=== PATIENT | male | born 1960 | race Two or more races ===

== ENCOUNTER → 2024-05-25 | Outpatient (BNVA) | payer MEDICAID, SELFPAY | END | disposition home or self-care (01) | PROVIDERS: PCP Nurse Practitioner Family; Referring Provider Nurse Practitioner Family; Visit Provider Nurse Practitioner Family | DX: I10 Essential (primary) hypertension (principal); E78.5 Hyperlipidemia, unspecified; E11.9 Type 2 diabetes mellitus without complications; E66.9 Obesity, unspecified; M15.9 Polyosteoarthritis, unspecified; Z68.42 Body mass index [BMI] 45.0-49.9, adult | CPT/HCPCS: 99213 ==

== ENCOUNTER → 2024-06-09 | Outpatient (BNVA) | payer MEDICAID, SELFPAY | END | disposition home or self-care (01) | PROVIDERS: PCP Nurse Practitioner Family; Referring Provider Nurse Practitioner Family; Visit Provider Nurse Practitioner Family | DX: E78.5 Hyperlipidemia, unspecified (principal); I10 Essential (primary) hypertension; E11.9 Type 2 diabetes mellitus without complications | CPT/HCPCS: 99214; A9270 ==

== ENCOUNTER → 2024-06-17 | Outpatient (BNVA) | payer MEDICAID, SELFPAY | END | disposition home or self-care (01) | PROVIDERS: PCP Nurse Practitioner Family; Referring Provider Nurse Practitioner Family; Visit Provider Nurse Practitioner Family | DX: E78.5 Hyperlipidemia, unspecified (principal); E11.9 Type 2 diabetes mellitus without complications; E66.9 Obesity, unspecified; R94.5 Abnormal results of liver function studies; I10 Essential (primary) hypertension; Z71.2 Person consulting for explanation of examination or test findings | CPT/HCPCS: 99213 ==

== ENCOUNTER 2024-06-25 11:49 | Inpatient (IN) | payer MEDICAID, SELFPAY ==
[2024-06-25] VITALS (34 sets, daily range): BP systolic 136–251; BP diastolic 79–136; PULSE 57–88; RESP 12–90; TEMP 36.6–37.2; O2SAT 90–98; BMI 43.3
--- NOTE | 2024-06-25 11:53 | EKG_ITS ---
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
--- NOTE | 2024-06-25 12:04 | XR_ITS ---
Examination: PA chest single view TECHNIQUE: Upright PA chest single view Exam date and time: June 25, 2024 1207 hours Comparison January 08, 2024 INDICATIONS: Chronic hypertension. FINDINGS: Normal heart size Mild ectasia thoracic aorta. No pneumonia or pulmonary edema IMPRESSION: No active disease
--- NOTE | 2024-06-25 12:05 | PD.EDRME ---
Rapid Medical Screening Exam RME Arrival date/time: 06/25/24 11:49 64-year-old male who presents to the emergency department with complaints of acute chest pain elevated blood pressure. I have greeted and performed a focused initial assessment of this patient. Initial appropriate labs ordered at this time. A comprehensive ED assessment and evaluation of the patient and analysis of all test and completion of medical decision making process will be conducted by additional ED provider. Chief Complaint: Chest Pain Time Seen by Provider: 06/25/24 12:04
--- NOTE | 2024-06-25 12:10 | PC.NURSE ---
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
--- NOTE | 2024-06-25 12:17 | EDNOTE_ITS ---
<Statement entered by Irene Choudhary MD - 06/25/24 15:24> As co-signing physician, I was present and available for consult prn. I concur with the plan and care as documented by the midlevel provider. ED Chest Pain RME/HPI General Chief Complaint: Chest Pain Stated Complaint: CHEST PAIN x 4 DAYS, WORSE SINCE 04 TODAY Time Seen by Provider: 06/25/24 12:04 Arrival date/time: 06/25/24 11:49 RME / HPI RME / HPI narrative: 64-year-old male patient with significant history of hypertension diabetes mellitus, hypercholesterolemia, came in for evaluation regarding right-sided chest pain. Onset of symptoms for the last 3 days, getting worse this morning, severity 10 out of 10, radiating to the back. Pain patient described was sharp pain. Patient was noted to have blood pressure above 200s systolic. Patient denies any cough denies any fever denies any shortness of breath. No medication was taken prior to arrival. Related Data Home Medications ?Medication ?Instructions ?Recorded ?Confirmed sitagliptin phosphate 25 mg tablet 25 mg PO QDAY 06/25/24 06/25/24 (Januvia) Previous Rx's ?Medication ?Instructions ?Recorded aspirin 81 mg chewable tablet 81 mg PO QDAY #90 tabs 05/25/24 losartan 100 mg tablet 100 mg PO QDAY #90 tabs 05/25/24 rosuvastatin 20 mg tablet 20 mg PO HS 90 days #90 tabs 05/25/24 amlodipine 10 mg tablet 10 mg PO QDAY #90 tabs 06/09/24 Allergies Allergy/AdvReac Type Severity Reaction Status Date / Time No Known Allergies Allergy Verified 06/25/24 11:52 Review of Systems Review of Systems Narrative Review of Systems: Review of system reviewed and within normal limits except mentioned in HPI ED Exam Narrative Physical exam: VITAL SIGNS: Reviewed. GENERAL APPEARANCE: Alert and interactive, follows commands, no acute distress, HEAD AND FACE: Non-traumatic. ENT: PERRL, pink conjunctivitis, eyelid no trauma, Mucous membrane moist. NECK: Supple, nontender, no nuchal rigidity. CHEST: Right sided chest no tenderness crepitus, no paradoxical movement, no retractions. LUNGS: Clear, well ventilated, symmetric, no rales, no wheezing, no ronchi, no stridor, good breath sounds bilaterally. HEART: Regular rate, regular rhythm, no murmur, no gallops. ABDOMEN: Soft, positive bowel sounds, nondistended, no guarding, nontender, no rebound, no masses, RECTAL: Deferred. GENITAL: Deferred. NEUROLOGICAL: Gross motor function intact sensory function intact, Appropriate for age. MUSCULOSKELETAL: low back nontender, full range of motion. EXTREMITIES: Nontender, full range of motion. SKIN: Color pink, dry, no rash, no lacerations, no abrasions, no contusions. LYMPHATICS: Deferred. Course Quality Measures none Orders Category Date Time Status COVID-19 Screening Questionnaire NOW Care 06/25/24 14:[address] Screening NOW Care 06/25/24 12:[address] Screening X1 Care 06/25/24 12:33 Active Physical Director STAT Care 06/25/24 12:04 Active Continuous Pulse Oximetry ONCE Care 06/25/24 12:04 Active Decision to Admit X1 Care 06/25/24 14:32 Ordered EKG (ED ONLY) *Do not use* NOW Care 06/25/24 11:53 Completed Insert IV STAT Care 06/25/24 12:04 Active Notify provider NOW Care 06/25/24 14:19 Active Consult to Cardiology Stat Cons 06/25/24 14:[address] angio chest abdomen pelvis Stat Exams 06/25/24 13:09 Completed EKG (ED Only) Stat Exams 06/25/24 11:53 Draft XR chest 1V portable Stat Exams 06/25/24 12:04 Completed B-Type Natriuretic Peptide Stat Lab 06/25/24 12:17 Completed CBC Stat Lab 06/25/24 12:17 Completed Comprehensive Metabolic Panel Stat Lab 06/25/24 12:17 Completed Lipase Stat Lab 06/25/24 12:17 Completed Magnesium Stat Lab 06/25/24 12:17 Completed Partial Thromboplastin Time AM DRAW Lab 06/27/24 05:00 Ordered Partial Thromboplastin Time Stat Lab 06/25/24 12:17 Completed Prothrombin Time with INR AM DRAW Lab 06/27/24 05:00 Ordered Prothrombin Time with INR Stat Lab 06/25/24 12:17 Completed Troponin I Stat Lab 06/25/24 12:17 Completed Troponin I Stat Lab 06/25/24 14:22 Received Aspirin Med 06/25/24 14:16 Discontinued 325 mg PO X1 ONE Heparin Inj Med 06/25/24 14:19 Discontinued 4,000 unit IV X1 ONE Heparin/D5w 25K 250 ML Ivpb [Heparin in D5w Ivpb] Med 06/25/24 14:30 Active 25,000 unit in 250 ml IV 7.1 units/kg/hr Labetalol IV [Trandate IV] Med 06/25/24 12:16 Discontinued 20 mg IVP X1 ONE Morphine Inj Med 06/25/24 12:16 Discontinued 4 mg IVP X1 ONE Nitroglycerin Oint 2% [Nitro-paste Oint 2%] Med 06/25/24 13:07 Discontinued 1 inch TOP X1 ONE Nitroglycerin [Nitrostat 1/150] Med 06/25/24 13:07 Discontinued 0.4 mg SL X1 ONE Ondansetron Inj [Zofran Inj] Med 06/25/24 12:16 Discontinued 4 mg IV X1 ONE hydrALAZINE INJ [Apresoline Inj] Med 06/25/24 13:25 Discontinued 20 mg IV X1 ONE Oxygen Delivery NOW RT 06/25/24 12:04 Active Vital Signs Vital signs: Vital Signs Temperature 97.9 F 06/25/24 12:05 Pulse Rate 88 06/25/24 12:05 Respiratory Rate 18 06/25/24 12:05 Blood Pressure 229/133 H 06/25/24 12:05 Pulse Oximetry (%) 96 06/25/24 12:05 Oxygen Delivery Method Room Air 06/25/24 12:05 Chest Pain MDM Narrative MDM Narrative:: 64-year-old male patient with significant history of hypertension diabetes mellitus, hypercholesterolemia, came in for evaluation regarding right-sided chest pain. Onset of symptoms for the last 3 days, getting worse this morning, severity 10 out of 10, radiating to the back. Pain patient described was sharp pain. Patient was noted to have blood pressure above 200s systolic. Patient denies any cough denies any fever denies any shortness of breath. No medication was taken prior to arrival. EKG as interpreted by me showed mild ST segment elevation on V leads, and mild ST depression in lead II and lead III. Ventricular rate of 86 bpm. Initial troponin was noted to be 1.48. CT angiogram of the chest and abdomen and pelvis was done to rule out aortic dissection or pulmonary embolism, it came back unremarkable. Patient was given morphine, aspirin, nitro, Nitropaste, and was started on heparin bolus and drip. I spoke with Dr. Lopez, dope firer on-call, who reviewed the case in case, and agrees for heparin drip and aspirin. Thank you Dr. Lopez Patient still having chest pain substernal location this time, however it is less than earlier today. Spoke with hospitalist, and admitted the patient. Patient data External records reviewed:: None Clinical information provided by:: patient Social determinants that could affect healthcare access:: none Patient has the following chronic illnesses:: Diabetes mellitus hypertension, hypercholesterolemia How is presenting disease/condition affected by chronic disease/condition?: exacerbated by Evaluation data The following diagnostics were reviewed and interpreted by me:: lab results, radiology exam(s) and EKG tracing(s) Lab and/or radiology exams considered but not ordered:: None Interpretation Summary: EKG as interpreted by me showed mild ST segment elevation on V leads, and mild ST depression in lead II and lead III, ventricular to 86 bpm. Initial troponin was noted to be 1.48. CT angiogram of the chest and abdomen and pelvis was done to rule out aortic dissection or pulmonary embolism, it came back unremarkable. Medications / Prescriptions Medications or Prescriptions considered but not ordered:: None Medication administrations:: Medication Administration History Heparin Sodium/Dextrose (Heparin In D5w Ivpb) 25,000 unit in 250 mls @ 10.016 mls/hr IV .Q24H KALEY; Protocol Stop: 07/09/24 14:29 Discontinued Medications Aspirin (Aspirin 325 Mg Tablet) 325 mg PO X1 ONE Stop: 06/25/24 14:17 Last Admin: 06/25/24 14:21 Dose: 325 mg Documented By: GLADIS Heparin Sodium (Porcine) (Heparin Sod Inj 5000 Unit/Ml Vial) 4,000 unit IV X1 ONE; Protocol Stop: 06/25/24 14:20 Hydralazine HCl (Hydralazine Inj 20 Mg/Ml Vial) 20 mg IV X1 ONE Stop: 06/25/24 13:26 Last Admin: 06/25/24 13:39 Dose: 20 mg Documented By: MANI Labetalol HCl (Labetalol Inj 5 Mg/Ml Vial 20 Ml) 20 mg IVP X1 ONE Stop: 06/25/24 12:17 Last Admin: 06/25/24 12:24 Dose: 20 mg Documented By: GLADIS Morphine Sulfate (Morphine Sulf Inj 10 Mg/Ml Vial) 4 mg IVP X1 ONE Stop: 06/25/24 12:17 Last Admin: 06/25/24 12:24 Dose: 4 mg Documented By: GLADIS Nitroglycerin (Nitroglycerin Oint 2% 1 Inch Packet) 1 inch TOP X1 ONE Stop: 06/25/24 13:08 Last Admin: 06/25/24 13:09 Dose: 1 inch Documented By: GLADIS Nitroglycerin (Nitroglycerin 0.4 Mg Subl Btl #25) 0.4 mg SL X1 ONE Stop: 06/25/24 13:08 Last Admin: 06/25/24 13:11 Dose: 0.4 mg Documented By: GLADIS Ondansetron HCl (Ondansetron Inj 2 Mg/Ml Inj 2 Ml) 4 mg IV X1 ONE; Protocol Stop: 06/25/24 12:17 Last Admin: 06/25/24 12:23 Dose: 4 mg Documented By: GLADIS Labetalol IV, hydralazine IV morphine, nitro Nitropaste, Zofran, aspirin and heparin drip and bolus Consultations Consultation(s) initiated? (list below): Yes Consultation #1 (Physician, Specialty, Details): Dr. Trent, discussed the case, thank you Dr. Diagnosis Chest Pain Differential Diagnosis: pneumothorax, chest pain and other (Aortic dissection, pulmonary embolism,) Most likely diagnosis given after review of the tests above:: Chest pain, non-STEMI Admission Indicated Admission indicated?: indicated Explain why admission is indicated or not indicated:: For further management. Admission Request Was there a request for admission?: Yes Admission Attestation Admission request attestation: Discussed case with [Dr. Negron] from Hospitalist service regarding admission. Discussed patients ED course, exam findings, labs, and radiology results. The Hospitalist [agrees] to accept the patient for admission. Disposition Plan Disposition Plan: Admit Discharge Plan Plan Patient Disposition: Admit Acute Care w/in Hospital Prescriptions/Referrals Prescriptions/Med Rec: No Action losartan 100 mg tablet 100 mg PO QDAY Qty: 90 0RF Rx Instructions: Directions in [place]utanese rosuvastatin 20 mg tablet 20 mg PO HS 90 Days Qty: 90 0RF Rx Instructions: Directions in [place]utanese aspirin 81 mg tablet,chewable 81 mg PO QDAY Qty: 90 0RF Rx Instructions: Directions in [place] amlodipine 10 mg tablet 10 mg PO QDAY Qty: 90 0RF Rx Instructions: Directions in [place] Januvia 25 mg tablet 25 mg PO QDAY Patient Comments: TAKE 1 TABLET BY MOUTH EVERY DAY Referrals: Sheila [facility] [employer],Renay Sow, [employer] [Primary Care Provider] - In 1 week Problem List Clinical Impression: Chest pain, Non-STEMI (non-ST elevated myocardial infarction) Patient/Caregiver Discharge Instructions Print Language: Bhutanese Stand Alone Forms: Ly Award Info., Patient Portal Info Letter
[2024-06-25] MEDS: ONDANSETRON INJ 2 MG/ML INJ 2 ML 4 MG IV (12:23)
[2024-06-25] MEDS: MORPHINE SULF INJ 10 MG/ML VIAL 4 MG IVP (12:24)
[2024-06-25] MEDS: LABETALOL INJ 5 MG/ML VIAL 20 ML 20 MG IVP ×2 (12:24→16:19)
[2024-06-25 12:27] LABS: Basophils # (Auto) 0.1 Thou/mm3 (0.0-0.2); Basophils % (Auto) 0 % (0-2.5); Eosinophils # (Auto) 0.1 Thou/mm3 (0.0-0.5); Eosinophils % (Auto) 0 % (0-10); Hematocrit 45.3 % (41.0-53.0); Hemoglobin 15.9 g/dL (13.5-16.0); Immature Granulocytes % (Auto) 1 % (0-0); Immature Granulocytes Auto 0.09 Thou/mm3 (0.00-0.00); Lymphocytes # (Auto) 1.3 Thou/mm3 (1.0-4.8); Lymphocytes % (Auto) 9 % (10-50); Mean Corpuscular HGB Conc 35.1 g/dl (31.0-37.0); Mean Corpuscular Hemoglobin 29.9 pg (25.0-35.0); Mean Corpuscular Volume 85 fL (80-100); Monocytes # (Auto) 0.6 Thou/mm3 (0.0-0.8); Monocytes % (Auto) 4 % (0-12); Neutrophils # (Auto) 13.3 Thou/mm3 (1.8-7.7); Neutrophils % (Auto) 86 % (37-80); Nucleated Red Blood Cell % 0 /100 WBC (0); Platelet Count 222 Thou/mm3 (140-440); RDW Standard Deviation 42.5 fL (35.1-43.9); Red Blood Count 5.31 Miln/mm3 (4.50-5.90); White Blood Count 15.4 Thou/mm3 (3.8-10.6)
[2024-06-25 12:43] LABS: Partial Thromboplastin Time 26.2 Seconds (22.0-36.0)
[2024-06-25 12:44] LABS: Alanine Aminotransferase 64 U/L (10-49); Alkaline Phosphatase 100 U/L (46-116); Anion Gap 9 (7-16); Aspartate Amino Transferase 44 U/L (0-34); BUN/Creatinine Ratio 11 Ratio (12-20); Bilirubin,Total 1.1 mg/dL (0.3-1.2); Blood Urea Nitrogen 13 mg/dL (9-23); Calcium 10.1 mg/dL (8.3-10.6); Calcium (Corrected) 10.1 mg/dL (8.5-10.1); Chloride 96 mMol/L (98-107); Creatinine (Component) 1.2 mg/dL (0.6-1.3); Estimated Creatinine Clearance 91.7 mL/min (>60); Glucose 293 mg/dL (74-106); Lipase 36 U/L (12-53); Magnesium 1.9 mg/dL (1.6-2.6); Osmolality,Calculated 281 (275-295); Potassium 3.2 mMol/L (3.4-5.1); Sodium 135 mMol/L (136-145); eGFR > 60 See Note
[2024-06-25 12:45] LABS: Albumin/Globulin Ratio 1.7 (1.2-2.2)
[2024-06-25 12:56] LABS: Troponin I 1.484 ng/mL (0.0-0.045)
[2024-06-25 13:08] LABS: B-Type Natriuretic Peptide 65 pg/mL (0-100)
[2024-06-25] MEDS: NITROGLYCERIN OINT 2% 1 INCH PACKET TOP (13:09)
--- NOTE | 2024-06-25 13:09 | XR_ITS ---
Examination: CTA chest, with intravenous contrast. CTA abdomen, with intravenous contrast. CTA pelvis, with intravenous contrast. 2-D sagittal and coronal reconstructions. 3-D reconstructions. Date and time of exam: June 25, 2024 1313 hours INDICATIONS: Worsening chest pain beginning 3 days ago CTDI vol (mgy) 17.9 DLP (MGycm) 1677 Technique: Multiple CTA images, 2.0 mm slice thickness, obtained chest, abdomen, pelvis, with the high-resolution 64 slice scanner. 100 cc Isovue-370 is administered intravenously. Sagittal and coronal 2-D reconstructions are obtained. 3-D reconstructions, angiographic images are obtained. 3-D postprocessing, including vascular maximum intensity projections. Low dose protocols were performed. One or more of the following dose reduction techniques were used; automated exposure control, adjustment of the mA and/or KV according to patient size, use of iterative reconstruction technique. Findings: AP dimension ascending thoracic aorta 34 mm No thoracic aortic dissection Main pulmonary artery segment 40 mm no pulmonary artery emboli No paratracheal tracheobronchial or bronchopulmonary adenopathy No pneumonia or pulmonary edema or pleural disease Diffuse fatty liver No focal liver or splenic lesions No gallstones No pancreatic or adrenal mass Abdominal aorta is not enlarged Moderate bilateral renal parenchymal scar formation, no hydronephrosis No bowel obstruction No pericecal inflammatory change No diverticulitis No significant prostatomegaly Urinary bladder intact Advanced degenerative disc disease L5-S1 IMPRESSION: Negative for thoracic aortic aneurysmal dilatation or dissection Pulmonary artery hypertension, negative for pulmonary artery emboli No pneumonia, pulmonary edema or pleural disease Negative for abdominal aortic aneurysm Moderate bilateral renal parenchymal scar formation, no hydronephrosis Moderate right hydrocele
[2024-06-25] MEDS: NITROGLYCERIN 0.4 MG SUBL BTL #25 SL (13:11)
--- NOTE | 2024-06-25 13:12 | PC.NURSE ---
Patient gone to ct via [facility]
[2024-06-25] MEDS: hydrALAZINE INJ 20 MG/ML VIAL IV (13:39)
[2024-06-25] MEDS: Aspirin 325 MG TABLET PO (14:21)
[2024-06-25] MEDS: Heparin/D5w 25K 250 ML Ivpb 25,000 UNIT/250 ML BAG 10.016 UNIT IV (14:49)
[2024-06-25] MEDS: HEPARIN SOD INJ 5000 UNIT/ML VIAL 4000 UNIT IV (14:49)
[2024-06-25 15:00] LABS: Troponin I 3.195 ng/mL (0.0-0.045)
--- NOTE | 2024-06-25 15:22 | PC.NURSE ---
Patient lying in high abrams's position sleeping, snoring intermittently, patient arouses and responds normally to voice, patient states pain is much better and rates it at 5/10 at this time, skin warm, dry and pink, patient awaiting admission. Patient aware of plan of care, call light within reach.
--- NOTE | 2024-06-25 15:25 | ESCONSULT_ITS ---
<Statement entered by Etienne Lopez MD - 06/26/24 13:28> I personally examined this patient emergency room appears to be having severe chest pain due to acute myocardial infarction with no ST segment elevation possibly occluded of sidebranch are possible 90% stenosis of one of the vessels continue aspirin heparin and Plavix hypertension management evaluate the patient in detail with PGY 2 Dr. Alonso SOUTH will monitor the patient arrange for coronary angiogram tomorrow morning HPI Data of Consult Primary Care Provider: Renay Sosa NP Consult Narrative History of present illness: 64-year-old male with past medical history of diabetes, hypertension, hyperlipidemia, peripheral neuropathy, and gout who presented to the ED with complaints of chest pain. Chest pain started around 4 in the morning after waking up to go to urinate. Patient denies any previous cardiac history, and family history is noncontributory. Cardiology consulted due to elevation in troponin and EKG showing signs of ST changes indicating possible NSTEMI. cc:: cc: Exam Vital Signs Temp Pulse Resp BP Pulse Ox O2 Del Method O2 Flow Rate 98.9 F 71 16 180/91 H 98 Room Air 3 06/25/24 14:09 06/25/24 15:21 06/25/24 15:21 06/25/24 15:21 06/25/24 15:21 06/25/24 15:21 06/25/24 13:02 Narrative Exam GENERAL: Alert and oriented x3, no acute distress, appears uncomfortable. HEART: Distant heart sounds, regular rate and rhythm, no murmurs, rubs or gallops. LUNGS: Clear to auscultation bilaterally with symmetrical chest rise. No labored breathing or intercostal retraction. ABDOMEN: Obese, nontender, nondistended, active bowel sounds. EXTREMITIES: Non-tender. No edema. SKIN: Warm and dry, no jaundice or rashes noted. PSYCHIATRIC: Patient is in normal mood and affect, cooperative. Results Labs 06/25/24 12:17 06/25/24 12:17 Labs: Short CBC 06/25/24 Range/Units 12:17 WBC 15.4 H (3.8-10.6) Thou/mm3 Hgb 15.9 (13.5-16.0) g/dL Hct 45.3 (41.0-53.0) % Plt Count 222 (140-440) Thou/mm3 BMP 06/25/24 12:17 Sodium 135 L Potassium 3.2 L Chloride 96 L Carbon Dioxide 30.0 BUN 13 Creatinine 1.2 Glucose 293 H Calcium 10.1 Cardiac Enzymes 06/25/24 06/25/24 Range/Units 12:17 14:22 Troponin I 1.484 H* 3.195 H* D (0.0-0.045) ng/mL Liver Function 06/25/24 Range/Units 12:17 Total Bilirubin 1.1 (0.3-1.2) mg/dL AST 44 H (0-34) U/L ALT 64 H (10-49) U/L Alkaline Phosphatase 100 (46-116) U/L Albumin 5.0 H (3.4-4.8) gm/dL Quality Measures Quality Measures none Medications Home Medications and Allergies Home Medications ?Medication ?Instructions ?Recorded ?Confirmed ?Type sitagliptin phosphate 25 mg tablet 25 mg PO QDAY 06/25/24 06/25/24 History (Paul) Allergies Allergy/AdvReac Type Severity Reaction Status Date / Time No Known Allergies Allergy Verified 06/25/24 11:52 Visit Medications Heparin Sodium/Dextrose (Heparin In D5w Ivpb) 25,000 unit in 250 mls @ 10.016 mls/hr IV .Q24H KALEY; Protocol Stop: 07/09/24 14:29 Last Admin: 06/25/24 14:49 Dose: 7.1 units/kg/hr, 10.016 mls/hr Discontinued Medications Aspirin (Aspirin 325 Mg Tablet) 325 mg PO X1 ONE Stop: 06/25/24 14:17 Last Admin: 06/25/24 14:21 Dose: 325 mg Heparin Sodium (Porcine) (Heparin Sod Inj 5000 Unit/Ml Vial) 4,000 unit IV X1 ONE; Protocol Stop: 06/25/24 14:20 Last Admin: 06/25/24 14:49 Dose: 4,000 unit Hydralazine HCl (Hydralazine Inj 20 Mg/Ml Vial) 20 mg IV X1 ONE Stop: 06/25/24 13:26 Last Admin: 06/25/24 13:39 Dose: 20 mg Labetalol HCl (Labetalol Inj 5 Mg/Ml Vial 20 Ml) 20 mg IVP X1 ONE Stop: 06/25/24 12:17 Last Admin: 06/25/24 12:24 Dose: 20 mg Morphine Sulfate (Morphine Sulf Inj 10 Mg/Ml Vial) 4 mg IVP X1 ONE Stop: 06/25/24 12:17 Last Admin: 06/25/24 12:24 Dose: 4 mg Nitroglycerin (Nitroglycerin Oint 2% 1 Inch Packet) 1 inch TOP X1 ONE Stop: 06/25/24 13:08 Last Admin: 06/25/24 13:09 Dose: 1 inch Nitroglycerin (Nitroglycerin 0.4 Mg Subl Btl #25) 0.4 mg SL X1 ONE Stop: 06/25/24 13:08 Last Admin: 06/25/24 13:11 Dose: 0.4 mg Ondansetron HCl (Ondansetron Inj 2 Mg/Ml Inj 2 Ml) 4 mg IV X1 ONE; Protocol Stop: 06/25/24 12:17 Last Admin: 06/25/24 12:23 Dose: 4 mg Assessment & Plan Plan 64-year-old male with past medical history of diabetes, hypertension, hyperlipidemia, peripheral neuropathy, and gout who presented to the ED with complaints of chest pain. Chest pain started around 4 in the morning after waking up to go to urinate. Patient denies any previous cardiac history, and family history is noncontributory. Cardiology consulted due to elevation in troponin and EKG showing signs of ST changes indicating possible NSTEMI. #NSTEMI #Elevated troponin #Hypertensive urgency Patient coming with chest pain, EKG showing ST changes in multiple leads Patient shows some improvement of chest pain with Nitropaste Patient started on heparin drip Plavix loading dose of 300 mg followed by 75 daily Will work on controlling BP. Order cardiac echo Continue with O2 supplementation Morphine as needed for pain Elevated troponin on admission N.p.o. after midnight for cath tomorrow #Hyperlipidemia #Diabetes #Gout #Peripheral neuropathy Continue management per primary team Case discussed with attending medicaid specialist Dr. John Gupta MD PGY3
--- NOTE | 2024-06-25 15:26 | PC.NURSE ---
Called Dr. Olson, hospitalists, made her aware patients 2nd troponin 3.195, no new orders received.
--- NOTE | 2024-06-25 15:32 | ECHO_ITS ---
Transthoracic Echo Report Ht (in): 71 Wt (lb): 311 Exam Location: Echo Lab Status: Emergency Cashier Wrapper: Haylee More Indications: Procedure Performed: BP: 178 / 100 HR: 76 Technical Quality: Technically difficult study MEASUREMENTS (Male / Female) Normal Values 2D ECHO LV Diastolic Diameter PLAX 5.1 cm 4.2 - 5.9 / 3.9 - 5.3 cm LV Systolic Diameter PLAX 3.5 cm IVS Diastolic Thickness 1.3 cm 0.6 - 1.0 / 0.6 - 0.9 cm LVPW Diastolic Thickness 1.3 cm 0.6 - 1.0 / 0.6 - 0.9 cm LV Relative Wall Thickness 0.5 LVOT Diameter 2.2 cm Aortic Root Diameter 3.4 cm LV Ejection Fraction MOD BP 53.6 % >= 55 % LV Cardiac Index MOD BP 2226.2 cm?/min?m? LV Ejection Fraction MOD 4C 43.3 % LV Cardiac Index MOD 4C 2111.8 cm?/min?m? LV Ejection Fraction 4C AL 43.8 % LV Cardiac Index 4C AL 2217.3 cm?/min?m? LV Ejection Fraction MOD 2C 63.5 % LV Cardiac Index MOD 2C 2231.8 cm?/min?m? LV Ejection Fraction 2C AL 64.9 % LV Cardiac Index 2C AL 2299.5 cm?/min?m? LA Volume Index 38.0 cm?/m? 16 - 28 cm?/m? Ascending Aorta Diameter 3.8 cm DOPPLER AV Peak Velocity 165.0 cm/s AV Peak Gradient 10.9 mmHg AV Mean Gradient 5.0 mmHg AV Velocity Time Integral 29.3 cm LVOT Peak Velocity 124.0 cm/s LVOT Peak Gradient 6.2 mmHg LVOT Velocity Time Integral 24.3 cm LVOT Cardiac Index 2576.9 cm?/min?m? AV Area Cont Eq vti 3.2 cm? AV Area Cont Eq pk 2.9 cm? MV Area PHT 3.4 cm? Mitral E Point Velocity 54.8 cm/s Mitral A Point Velocity 67.4 cm/s Mitral E to A Ratio 0.8 LV E' Lateral Velocity 8.7 cm/s Mitral E to LV E' Lateral Ratio 6.3 LV E' Septal Velocity 5.2 cm/s Mitral E to LV E' Septal Ratio 10.5 PV Peak Velocity 118.0 cm/s PV Peak Gradient 5.6 mmHg FINDINGS Left Ventricle Normal left ventricular size and systolic function with no obvious regional wall motion abnormalitie s. Mild LVH Normal left ventricular diastolic filling pattern for age. The ejection fraction is visually est imated at 60 %. Right Ventricle The right ventricle is normal in size and systolic function. Left Atrium The left atrium is normal by two-dimensional, color flow and Doppler imaging with no structural abnormalities, no thrombus formation present. Right Atrium The right atrium is normal by two-dimensional imaging, color flow and Doppler imaging with no struct ural abnormalities, no thrombus formation present. Atrial Septum The interatrial septum appears normal with no evidence of a shunt. Aorta The aorta is normal by two-dimensional, color flow and Doppler interrogation. Mitral Valve The mitral valve is normal by two-dimensional, color flow and Doppler interrogation. There is trace mitral valve regurgitation. Aortic Valve The aortic valve is trileaflet and normal by two-dimensional, color flow and Doppler interrogation. There is no significant aortic valve regurgitation. Tricuspid Valve The tricuspid valve is normal by two-dimensional, color flow and Doppler interrogation. There is tra ce tricuspid valve regurgitation. Pulmonic Valve The pulmonic valve is not well visualized. There is no significant pulmonic valve regurgitation. Vessels The pulmonary artery appears normal. The inferior vena cava pulmonary and hepatic veins appear sarkis l. Pericardium The pericardium is normal by two-dimensional imaging. There is no significant pericardial effusion. CONCLUSIONS Indication: NSTEMI Normal LV size and function. Estimated EF 60%. Mild LVH. Grade I disatolic dysfunction. Normal RV size and function. Trace MR and TR. Chetna Trent (Electronically Signed) Final Date: 26 June 2024 12:56
--- NOTE | 2024-06-25 15:39 | EKG_ITS ---
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1960 Requested By: Willis Pelaez Order Number: [id number] Reading MD: Willis Pelaez Measurements Intervals [place] Rate: 61 P: 29 DC: 212 QRS: 30 QRSD: 117 T: 113 QT: 465 QTc: 472 Interpretive Statements SINUS RHYTHM WITH FIRST DEGREE AV BLOCK ANTERIOR MYOCARDIAL INFARCTION , OF INDETERMINATE AGE [40+ ms Q WAVE AND/OR ST/T ABNORMALITY IN V3/V4] MODERATE T-WAVE ABNORMALITY, CONSIDER LATERAL ISCHEMIA [-0.1+ mV T WAVE IN I/aVL/V5/V6] Compared to ECG 06/25/2024 12:00:04 T-wave abnormality now present Possible ischemia now present Myocardial infarct finding still present /store/S0/[id number]/ecg/[id number]
--- NOTE | 2024-06-25 15:55 | PC.NURSE ---
Dr. Gupta at bedside to evaluate patient and speaking with patient about blood pressure, results and plan of care.
[2024-06-25] MEDS: POTASSIUM CHLORIDE 20 mEq TABCR 40 MEQ PO (16:10)
[2024-06-25] MEDS: CLOPIDOGREL BISULFATE 75 MG TABLET 300 MG PO (16:12)
[2024-06-25] MEDS: hydrALAZINE INJ 20 MG/ML VIAL 10 MG IV (16:16)
[2024-06-25] MEDS: Magnesium Sulfate 2 GM Ivpb 2 GM/50 ML BAG IV (16:19)
[2024-06-25] MEDS: POTASSIUM CHL 10 mEq IVPB 10 MEQ/100 ML BAG 75 MEQ IV ×4 (16:22→21:36)
--- NOTE | 2024-06-25 16:49 | ESHP_ITS ---
<Statement entered by Jermaine Olson MD - 06/25/24 18:29> This patient is a 64-year-old male with past medical history of hypertension, diabetes, hyperlipidemia presented with chest pain from last 3 days worsening from last 1 day. He noticed to have sharp pain and EKG showed ST-T changes. Patient's pain got resolved with Nitropaste. On admission patient's blood pressure was elevated he was in hypertensive emergency there for multiple antihypertensives were given including labetalol 20 mg IV, hydralazine 20 mg IV loading dose of aspirin 325 mg was given. Additionally, patient received nitroglycerin and morphine. Senior Underwriting Assistant, Dr. Jennifer Lopez recommended to give another push of IV labetalol 10 mg x 1, start labetalol 200 mg twice daily, give a bolus of Plavix 300 mg x 1 and start heparin drip as he plans to do cardiac catheterization tomorrow morning. We ordered lipid panel, TSH and echocardiogram for tomorrow morning. Patient will be n.p.o. after midnight for cardiac catheterization. He is admitted for NSTEMI type I. Home medications including losartan and amlodipine were reconciled per cardiology recommendations. Will closely monitor his blood pressure and goal of blood pressure today is 180 systolic given 25% reduction in first 24 hours. Will likely give IV labetalol 10 mg x 1 if needed if blood pressure remains elevated above 200 and consider consulting ICU team if patient will benefit from IV drip for blood pressure control. Will trend troponin I every 6 hourly as they are uptrending. All labs and orders were reviewed. I saw and examined the patient, and I agree with current management stated by Dr Edson MD,PGY1. Plan of care was discussed with the attending physician and resident physician. Disclaimer: Despite multiple revisions, due to the dictation software being used, the document bellow may not be free of grammatical errors including phonetic/typographic errors. However, this does not deter from our commitment to providing health care in the patient's best interest in mind. Dr. Whitney MD, PGY 2 Documentation for date of: 06/25/24 HPI History of Present Illness Chief complaint: Chest pain History of present illness: 64 y/o M with PMHx significant for hypertension, prediabetes, hyperlipidemia presents to ED with chief complaint of chest pain x 3 days with severe worsening x 1 day. Patient was in his usual state of health until 3 days ago when he noticed sharp 5 out of 10 chest pain in the center of his chest. Today chest pain acutely worsened to 10 out of 10, same location, radiating to back, associate with shortness of breath. Patient reports he typically sleeps with 3 pillows at night due to shortness of breath when lying flat, has no leg swelling for some period of time. Patient also notes that he regularly checks home blood pressure, typically is approximately 200/100. Denies fever, chills, nausea, vomiting, dysuria. ED COURSE: Labs significant for: WBC 15.4, potassium 3.2, magnesium 1.9, troponin 1.48 up trended to 3.195. Imaging significant for: Chest x-ray unremarkable. Chest abdomen pelvis CTA showed pulmonary artery hypertension, moderate right hydrocele. Patient received morphine, nitro, labetalol 20, hydralazine 20, aspirin 325 in the ED. EKG showed T wave changes compared to previous, possible ST changes. Patient severely hypertensive, SBP greater than 200, decreased to 180/91 with intervention. PMH: Hypertension, prediabetes, hyperlipidemia PSH: No surgical history SH: Denies smoking, drinking, illicit drug use. Allergies:?NKDA Medications: Januvia, aspirin, losartan, amlodipine, rosuvastatin Review of Systems Review of Systems Systems Reviewed: All systems reviewed, normal except as documented Past Medical History Past Medical History Comments PMH COMMENT: PMH: Hypertension, prediabetes, hyperlipidemia PSH: No surgical history SH: Denies smoking, drinking, illicit drug use. Allergies:?NKDA Medications: Januvia, aspirin, losartan, amlodipine, rosuvastatin Exam Vital Signs Temp Pulse Resp BP Pulse Ox O2 Del Method O2 Flow Rate 98.2 F 62 19 152/86 H 95 Room Air 3 06/25/24 16:32 06/25/24 16:32 06/25/24 16:32 06/25/24 16:32 06/25/24 16:32 06/25/24 16:32 06/25/24 13:02 Narrative Exam PE: Gen: Well-developed and well-nourished. Obese. HEENT: NCAT, PERRLA, EOMI, MMM, anicteric conjunctivae. CVS: normal S1 and S2. RRR. No M/R/G. Resp: CTA B/L. No rhonchi, rales, crackles or wheezing. Poor lung sounds due to body habitus. Abd: soft, non-distended. BS+ in all 4 quadrants. Mild abdominal tenderness in epigastric and right upper and lower quadrants. Bruising right lower quadrant. MSK: Good ROM in BUE & BLE. No rash. 1+ pitting edema bilateral lower extremities. Neuro: CN II-XII grossly intact. Strength 5/5 in BUE & BLE. Alert and oriented x3. Psych: appropriate mood and affect. Results: Labs 06/25/24 12:17 06/25/24 12:17 Labs: Short CBC 06/25/24 Range/Units 12:17 WBC 15.4 H (3.8-10.6) Thou/mm3 Hgb 15.9 (13.5-16.0) g/dL Hct 45.3 (41.0-53.0) % Plt Count 222 (140-440) Thou/mm3 BMP 06/25/24 12:17 Sodium 135 L Potassium 3.2 L Chloride 96 L Carbon Dioxide 30.0 BUN 13 Creatinine 1.2 Glucose 293 H Calcium 10.1 Cardiac Enzymes 06/25/24 06/25/24 Range/Units 12:17 14:22 Troponin I 1.484 H* 3.195 H* D (0.0-0.045) ng/mL Liver Function 06/25/24 Range/Units 12:17 Total Bilirubin 1.1 (0.3-1.2) mg/dL AST 44 H (0-34) U/L ALT 64 H (10-49) U/L Alkaline Phosphatase 100 (46-116) U/L Albumin 5.0 H (3.4-4.8) gm/dL Quality Measures Quality Measures VTE prophylaxis Medications Home Medications and Allergies Home Medications ?Medication ?Instructions ?Recorded ?Confirmed ?Type sitagliptin phosphate 25 mg tablet 25 mg PO QDAY 06/25/24 06/25/24 History (Canelouvbranden) Allergies Allergy/AdvReac Type Severity Reaction Status Date / Time No Known Allergies Allergy Verified 06/25/24 11:52 Visit Medications Amlodipine Besylate (Amlodipine Besylate 5 Mg Tablet) 10 mg PO QDAY KALEY Stop: 07/26/24 08:59 Dextrose (Dextrose 50%-Water Inj 50 Ml Syringe) 25 ml IV Q15MIN PRN PRN Reason: BG 50-70 responsive npo pt Stop: 07/25/24 15:52 Dextrose (Dextrose 50%-Water Inj 50 Ml Syringe) 50 ml IV Q15MIN PRN PRN Reason: BG <50 OR BG <70 & pt unresponsive Stop: 07/25/24 15:52 Glucagon (Glucagon Inj 1 Mg Vial) 1 mg IM Q15MIN PRN PRN Reason: BG <70, and no IV access Hydralazine HCl (Hydralazine Inj 20 Mg/Ml Vial) 10 mg IV Q4H PRN PRN Reason: Blood Pressure - High Stop: 07/25/24 15:59 Last Admin: 06/25/24 16:16 Dose: 10 mg Heparin Sodium/Dextrose (Heparin In D5w Ivpb) 25,000 unit in 250 mls @ 10.016 mls/hr IV .Q24H [facility]; Protocol Stop: 07/09/24 14:29 Last Admin: 06/25/24 14:49 Dose: 7.1 units/kg/hr, 10.016 mls/hr Magnesium Sulfate (Magnesium Sulfate Ivpb) 2 gm in 50 mls @ 25 mls/hr IV X1 ONE Stop: 06/25/24 17:32 Last Admin: 06/25/24 16:19 Dose: 25 mls/hr Potassium Chloride (Kcl Ivpb) 10 meq in 100 mls @ 100 mls/hr IV Q1H KALEY Stop: 06/25/24 19:33 Last Admin: 06/25/24 16:22 Dose: 75 mls/hr Insulin Human Lispro (Insulin Lispro (Admelog) 1 Unit/0.01 Ml Unit) 0 unit SC Q6HR [facility]; Protocol Stop: 07/25/24 17:59 Labetalol HCl (Labetalol 100 Mg Tablet) 200 mg PO BID [facility] Stop: 07/25/24 20:59 Losartan Potassium (Losartan Potassium 25 Mg Tablet) 100 mg PO QDAY [facility] Stop: 07/26/24 08:59 Morphine Sulfate (Morphine Sulf Inj 10 Mg/Ml Vial) 2 mg IVP Q4H PRN PRN Reason: PAIN SCALE 7-10 (Severe Stop: 06/30/24 15:26 Ondansetron HCl (Ondansetron Inj 2 Mg/Ml Inj 2 Ml) 4 mg IV Q6H PRN; Protocol PRN Reason: NAUSEA OR VOMITING Stop: 07/25/24 15:26 Discontinued Medications Aspirin (Aspirin 325 Mg Tablet) 325 mg PO X1 ONE Stop: 06/25/24 14:17 Last Admin: 06/25/24 14:21 Dose: 325 mg Clopidogrel Bisulfate (Clopidogrel Bisulfate 75 Mg Tablet) 300 mg PO X1 ONE Stop: 06/25/24 15:33 Last Admin: 06/25/24 16:12 Dose: 300 mg Heparin Sodium (Porcine) (Heparin Sod Inj 5000 Unit/Ml Vial) 4,000 unit IV X1 ONE; Protocol Stop: 06/25/24 14:20 Last Admin: 06/25/24 14:49 Dose: 4,000 unit Hydralazine HCl (Hydralazine Inj 20 Mg/Ml Vial) 20 mg IV X1 ONE Stop: 06/25/24 13:26 Last Admin: 06/25/24 13:39 Dose: 20 mg Labetalol HCl (Labetalol Inj 5 Mg/Ml Vial 20 Ml) 20 mg IVP X1 ONE Stop: 06/25/24 12:17 Last Admin: 06/25/24 12:24 Dose: 20 mg Labetalol HCl (Labetalol Inj 5 Mg/Ml Vial 20 Ml) 20 mg IVP X1 ONE Stop: 06/25/24 16:00 Last Admin: 06/25/24 16:19 Dose: 20 mg Labetalol HCl (Labetalol 100 Mg Tablet) 200 mg PO BID KALEY Stop: 07/25/24 16:14 Morphine Sulfate (Morphine Sulf Inj 10 Mg/Ml Vial) 4 mg IVP X1 ONE Stop: 06/25/24 12:17 Last Admin: 06/25/24 12:24 Dose: 4 mg Nitroglycerin (Nitroglycerin Oint 2% 1 Inch Packet) 1 inch TOP X1 ONE Stop: 06/25/24 13:08 Last Admin: 06/25/24 13:09 Dose: 1 inch Nitroglycerin (Nitroglycerin 0.4 Mg Subl Btl #25) 0.4 mg SL X1 ONE Stop: 06/25/24 13:08 Last Admin: 06/25/24 13:11 Dose: 0.4 mg Ondansetron HCl (Ondansetron Inj 2 Mg/Ml Inj 2 Ml) 4 mg IV X1 ONE; Protocol Stop: 06/25/24 12:17 Last Admin: 06/25/24 12:23 Dose: 4 mg Potassium Chloride (Potassium Chloride 20 Meq Tabcr) 40 meq PO X1 ONE Stop: 06/25/24 15:33 Last Admin: 06/25/24 16:10 Dose: 40 meq Assessment & Plan Plan 64 y/o M with PMHx significant for hypertension, prediabetes, hyperlipidemia presents to ED with chief complaint of chest pain x 3 days with severe worsening x 1 day, admitted for NSTEMI. #NSTEMI #Hypertensive emergency Patient has history of hypertension, states home BP checks typically approximately 200/100. Patient presented with chest pain x 3 days with severe worsening x 1 day. EKG showed T wave changes, troponin 1.48 up trended to 3.19. Cardiology consulted, plan for cardiac cath tomorrow. Loading doses of aspirin and Plavix given. -N.p.o. after midnight -Cardiac cath -Telemetry -Cardiology consulted, appreciate recommendations -Resume patient's home meds tomorrow: Losartan 100 mg daily, amlodipine 10 mg daily -Labetalol 200 mg p.o. twice daily -Hydralazine pushes as needed -Trend troponin -Heparin drip -Morphine as needed for chest pain -Likely resume home statin tomorrow #DM Patient reports history of prediabetes for which she takes Januvia. However patient previous A1c of 6.9%. Most recent A1c 6.3% as of 02/24/2024. Patient glucose on admission 293. -Insulin sliding scale -A1c ordered, follow-up DVT prophylaxis: Heparin drip GI prophylaxis: None Diet: Lines: Peripheral IV Code status: Full code Plan of care discussed with senior resident Dr. Olson PGY?[address] Boles. Willis Sandhu MD PGY?1 Attending Provider Attestation/Addendum I attest that I was physically present for the evaluation, physical examination, lab and imaging review of the patient with the residents. I discussed the case with the residents and agree with the findings and plans of care as documented above. Patient is a 64 years old male with past medical history of hypertension, prediabetes, hyperlipidemia who presented to the ED with complaint of chest pain that started 3 days ago but has been worsening for 1 day.? His pain is radiating towards the back and towards the right side.? Also answers yes to orthopnea, and has bilateral leg swelling.? He also admits to having high blood pressure at home usually around 200 systolic.? In the ED, he was found to have leukocytosis, elevated troponin and new EKG changes. ?He also had very high blood pressure with systolic up to 251.? Discussed with cardiology, recommended restarting patient on aspirin, statin, heparin drip and blood pressure control.? May plan for cardiac catheterization tomorrow.? We will keep patient n.p.o. after midnight.? Blood pressure has improved with IV antihypertensives patient received in the ED.? We will add antihypertensives to slowly control his blood pressure. Sourav Boles MD
--- NOTE | 2024-06-25 17:30 | PC.NURSE ---
Patient lying in gurney quietly sleeping, arouses and responds normally to voice, patient denies pain at this time, call light within reach.
--- NOTE | 2024-06-25 18:00 | PC.NURSE ---
patient provided with meal tray.
[2024-06-25] MEDS: INSULIN LISPRO (AdmeLOG) 1 UNIT/0.01 ML UNIT SC (18:01)
[2024-06-25] MEDS: LABETALOL 100 MG TABLET 200 MG PO (20:17)
[2024-06-25 21:23] LABS: Partial Thromboplastin Time 27.9 Seconds (22.0-36.0)
[2024-06-25 21:31] LABS: Troponin I 6.617 ng/mL (0.0-0.045)
[2024-06-25] MEDS: HEPARIN SOD INJ 5000 UNIT/ML VIAL 4000 UNIT IVP (23:34)
[2024-06-26] VITALS (34 sets, daily range): BP systolic 127–205; BP diastolic 73–132; PULSE 59–89; RESP 14–20; TEMP 36.1–37.1; O2SAT 92–99; BMI 43.4
[2024-06-26 02:23] LABS: Basophils # (Auto) 0.1 Thou/mm3 (0.0-0.2); Basophils % (Auto) 0 % (0-2.5); Eosinophils # (Auto) 0.3 Thou/mm3 (0.0-0.5); Eosinophils % (Auto) 2 % (0-10); Hematocrit 41.6 % (41.0-53.0); Hemoglobin 14.2 g/dL (13.5-16.0); Immature Granulocytes % (Auto) 1 % (0-0); Immature Granulocytes Auto 0.07 Thou/mm3 (0.00-0.00); Lymphocytes # (Auto) 2.2 Thou/mm3 (1.0-4.8); Lymphocytes % (Auto) 15 % (10-50); Mean Corpuscular HGB Conc 34.1 g/dl (31.0-37.0); Mean Corpuscular Hemoglobin 29.8 pg (25.0-35.0); Mean Corpuscular Volume 87 fL (80-100); Monocytes % (Auto) 7 % (0-12); Neutrophils # (Auto) 11.2 Thou/mm3 (1.8-7.7); Neutrophils % (Auto) 76 % (37-80); Nucleated Red Blood Cell % 0 /100 WBC (0); Platelet Count 194 Thou/mm3 (140-440); RDW Standard Deviation 43.9 fL (35.1-43.9); Red Blood Count 4.76 Miln/mm3 (4.50-5.90); White Blood Count 14.8 Thou/mm3 (3.8-10.6)
[2024-06-26 02:40] LABS: Glucose Estimated Average 137 mg/dL (80-131); Hemoglobin A1C 6.4 % Hgb (4.8-6.0)
[2024-06-26 02:44] LABS: Alanine Aminotransferase 52 U/L (10-49); Albumin, Serum 4.4 gm/dL (3.4-4.8); Albumin/Globulin Ratio 1.8 (1.2-2.2); Alkaline Phosphatase 72 U/L (46-116); Anion Gap 8 (7-16); Aspartate Amino Transferase 78 U/L (0-34); BUN/Creatinine Ratio 12 Ratio (12-20); Bilirubin,Total 0.9 mg/dL (0.3-1.2); Blood Urea Nitrogen 13 mg/dL (9-23); Calcium 9.3 mg/dL (8.3-10.6); Calcium (Corrected) 9.3 mg/dL (8.5-10.1); Carbon Dioxide 30.2 mMol/L (20.0-31.0); Cardiac Risk Estimate 4.3 RATIO (4.0-6.7); Chloride 99 mMol/L (98-107); Cholesterol 137 mg/dL (132-200); Creatinine (Component) 1.1 mg/dL (0.6-1.3); Estimated Creatinine Clearance 100.1 mL/min (>60); Globulin 2.4 gm/dL (2.3-3.5); Glucose 191 mg/dL (74-106); HDL Cholesterol 32 mg/dL (40-60); LDL Cholesterol,Calculated 56 mg/dL (0-130); Magnesium 2.1 mg/dL (1.6-2.6); Osmolality,Calculated 278 (275-295); Phosphorous 3.3 mg/dL (2.4-5.1); Potassium 3.4 mMol/L (3.4-5.1); Sodium 137 mMol/L (136-145); Total Protein 6.8 gm/dL (5.7-8.2); Triglycerides 245 mg/dL (30-150); eGFR > 60 See Note
[2024-06-26 02:52] LABS: Troponin I 8.958 ng/mL (0.0-0.045)
[2024-06-26] MEDS: MORPHINE SULF INJ 10 MG/ML VIAL 2 MG IVP ×2 (03:52→04:18)
[2024-06-26] MEDS: NITROGLYCERIN 0.4 MG SUBL BTL #25 SL ×3 (03:58→04:15)
--- NOTE | 2024-06-26 04:10 | EKG_ITS ---
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
[2024-06-26] MEDS: NITROGLYCERIN OINT 2% 1 INCH PACKET TOP ×3 (04:33→21:22)
--- NOTE | 2024-06-26 04:45 | PD.RESEVENT ---
Documentation for date of: 06/26/24 Event Note Event Note: Rapid Response Room: 261 Time: 04:08 Reason for Call: 03/19 substernal chest pain Patient presentation: Patient complaining of 03/19 central substernal chest pain, described as constant, stabbing, onset about 1 hour ago while the patient was laying in bed. Patient saturating 94% on 2L, BP 143/88, HR 70-80s. Events: Patient received sublingual nitroglycerin 0.4 mg x3, 2 mg IV morphine, without relief of the pain. EKG was obtained x3 q10 minutes apart, showed no acute ST-T changes, ST changes in anteroseptal leads are similar to EKG this afternoon. Patient did not have relief of chest pain therefore another 2 mg IV morphine given and nitropaste 1 inch topical was given. After 30 minutes chest pain was relieved to 2/10. Assessment: NSTEMI, with increasing troponin (last 8.958), patient has been on heparin drip since 3 pm 06/25. Patient planned for cath today (no confirmed time). Messaged Dr. Lopez and will inform day team. New orders: EKG, troponin stat, morphine 2 mg IV x2, nitropaste 1 inch, nitroglycerin 0.4 mg x3 Patient was discussed with the attending, Dr. Wright. Joy Marie, PGY-2
[2024-06-26] MEDS: HEPARIN SOD INJ 5000 UNIT/ML VIAL 2000 UNIT IVP (05:52)
[2024-06-26] MEDS: LOSARTAN POTASSIUM 25 MG TABLET 100 MG PO (08:05)
[2024-06-26] MEDS: amLODIPine BESYLATE 5 MG TABLET 10 MG PO (08:06)
[2024-06-26] MEDS: LABETALOL 100 MG TABLET 200 MG PO ×2 (08:06→21:21)
--- NOTE | 2024-06-26 08:49 | PC.SS ---
Patient Mick Escobar is a 64 Year old male admitted for NSETEMI. SS met with patient regarding his discharge plan. Pt appeared to be alert and oriented. Patient reports he resides with son at home. Patient is able to ambulate without any DME. Patient is able to complete all ADL's independently. Patient?s pharmacy of choice is [facility] on [address]. Patient reports his son, Mick Escobra is medical decision maker [phone]. Patient?s choice is to return home upon discharge. Pt does not have an advance directive on file and is not interested. Patient's son will provide transportation at time of discharge. D/C plan: Return home Next of Kin: Kyree Escobar, son, phone# [phone] PCP: Renay Sosa
[2024-06-26] MEDS: POTASSIUM CHL 10 mEq IVPB 10 MEQ/100 ML BAG 75 MEQ IV (09:08)
--- NOTE | 2024-06-26 09:11 | PC.SS ---
SS follow up note; Patient is pending an angio-gram today. Pending Dr Lopez's consultation. Rapid called last night, patient was having chest pain.
[2024-06-26 10:01] LABS: Troponin I 11.678 ng/mL (0.0-0.045)
[2024-06-26] MEDS: SODIUM CHLORIDE 0.45 % 500 ML 100 ML IV (10:44)
[2024-06-26] MEDS: FUROSEMIDE INJ 10 MG/ML 4ML VIAL 40 MG IVP (13:23)
[2024-06-26] MEDS: hydrALAZINE HCL 25 MG TABLET 50 MG PO ×2 (13:36→17:16)
--- NOTE | 2024-06-26 14:06 | ESPR_ITS ---
<Statement entered by Jermaine Olson MD - 06/26/24 14:42> Patient was seen and examined at the bedside this morning. Overnight, rapid response was called for chest pain and patient was given nitroglycerin, morphine and hydralazine for blood pressure. Patient's chest pain improved after receiving nitroglycerin and morphine. This morning patient got cardiac angiogram with results are pending. Patient is still on heparin drip. A1c came 6.4. Potassium was repleted. We are continuing per cardiology recommendation on labetalol 200 mg twice daily, losartan 100 mg once daily and amlodipine 10 mg once daily. Hydralazine 50 mg as needed for hypertensive emergency. Will follow-up with cardiology recommendations. Blood pressure was stable this morning. Rest of the labs mainly significant for troponin elevation to 10. All labs and orders were reviewed. I saw and examined the patient, and I agree with current management stated by Dr Edson MD,PGY1. Plan of care was discussed with the attending physician and resident physician. Disclaimer: Despite multiple revisions, due to the dictation software being used, the document bellow may not be free of grammatical errors including phonetic/typographic errors. However, this does not deter from our commitment to providing health care in the patient's best interest in mind. Dr. Whitney MD, PGY 2 Documentation for date of: 06/26/24 Subjective Subjective Interval history: After response called overnight: Patient reported some increase in chest pain to 10/10, received multiple rounds of morphine and nitro without relief. Troponins continue to uptrend, repeat EKG showed ST and T wave changes. Additional morphine and nitro given after which patient experienced relief, chest pain decreased to 2/10. Patient seen and examined at bedside. Patient complains significant pain in left arm due to potassium infusion. Patient noted minimal chest pain compared to arrival. Patient denied shortness of breath, nausea, vomiting, fever, chills. Chest cath today. Continue heparin drip and aggressive BP management. Exam Vital Signs Temp Pulse Resp BP Pulse Ox O2 Del Method O2 Flow Rate 97.5 F 72 16 193/103 H 95 Room Air 3 06/26/24 12:55 06/26/24 14:00 06/26/24 14:00 06/26/24 14:00 06/26/24 14:00 06/26/24 14:06/26/24 12:19 Narrative Exam PE: Gen: Well-developed and well-nourished. Obese. HEENT: NCAT, PERRLA, EOMI, MMM, anicteric conjunctivae. CVS: normal S1 and S2. RRR. No M/R/G. Resp: CTA B/L. No rhonchi, rales, crackles or wheezing. Poor lung sounds due to body habitus. Abd: soft, non-distended. BS+ in all 4 quadrants. Mild abdominal tenderness in epigastric and right upper and lower quadrants. Bruising right lower quadrant. MSK: Good ROM in BUE & BLE. No rash. 1+ pitting edema bilateral lower extremities. Neuro: CN II-XII grossly intact. Strength 5/5 in BUE & BLE. Alert and oriented x3. Psych: appropriate mood and affect. Objective Labs 06/26/24 02:10 06/26/24 02:10 Labs: Laboratory Results - last 24 hr 06/25/24 06/25/24 06/26/24 14:22 20:43 02:10 WBC 14.8 H RBC 4.76 Hgb 14.2 Hct 41.6 MCV 87 MCH 29.8 MCHC 34.1 RDW Std Deviation 43.9 Plt Count 194 Neut % (Auto) 76 Lymph % (Auto) 15 [place] % (Auto) 7 Eos % (Auto) 2 Baso % (Auto) 0 Neut # (Auto) 11.2 H Lymph # (Auto) 2.2 [place] # (Auto) 1.0 H Eos # (Auto) 0.3 Baso # (Auto) 0.1 Immature Gran # (Auto) 0.07 H Absolute Nucleated RBC 0.00 Immature Gran % 1 H Nucleated RBC % 0 APTT 27.9 Sodium 137 Potassium 3.4 Chloride 99 Carbon Dioxide 30.2 Anion Gap 8 BUN 13 Creatinine 1.1 Estim Creat Clear Calc 100.1 eGFR > 60 BUN/Creatinine Ratio 12 [address] Glu mg/dL 137 H Hemoglobin A1c 6.4 H Calculated Osmolality 278 Calcium 9.3 Corrected Calcium 9.3 Phosphorus 3.3 Magnesium 2.1 Total Bilirubin 0.9 AST 78 H ALT 52 H Alkaline Phosphatase 72 D Troponin I 3.195 H* D 6.617 H* D 8.958 H* D Total Protein 6.8 Albumin 4.4 D Globulin 2.4 Albumin/Globulin Ratio 1.8 Triglycerides 245 H Cholesterol 137 LDL Cholesterol, Calc 56 HDL Cholesterol 32 L Cholesterol/HDL Ratio 4.3 TSH 0.90 06/26/24 06/26/24 04:27 08:50 WBC RBC Hgb Hct MCV MCH MCHC RDW Std Deviation Plt Count Neut % (Auto) Lymph % (Auto) [place] % (Auto) Eos % (Auto) Baso % (Auto) Neut # (Auto) Lymph # (Auto) [place] # (Auto) Eos # (Auto) Baso # (Auto) Immature Gran # (Auto) Absolute Nucleated RBC Immature Gran % Nucleated RBC % APTT 37.0 H Sodium Potassium Chloride Carbon Dioxide Anion Gap BUN Creatinine Estim Creat Clear Calc eGFR BUN/Creatinine Ratio Glucose Estimated Ave Glu mg/dL Hemoglobin A1c Calculated Osmolality Calcium Corrected Calcium Phosphorus Magnesium Total Bilirubin AST ALT Alkaline Phosphatase Troponin I 10.180 H* D 11.678 H* D Total Protein Albumin Globulin Albumin/Globulin Ratio Triglycerides Cholesterol LDL Cholesterol, Calc HDL Cholesterol Cholesterol/HDL Ratio TSH Quality Measures Quality Measures VTE prophylaxis Assessment & Plan Assessment Current Active Medications: Generic Name Dose Route Start Last Admin Trade Name Freq PRN Reason Stop Dose Admin Amlodipine Besylate 10 mg 06/26/24 09:00 06/26/24 08:06 Amlodipine Besylate 5 Mg Tablet PO 07/26/24 08:59 10 mg QDAY KALEY Administration Dextrose 25 ml 06/25/24 15:53 Dextrose 50%-Water Inj 50 Ml Syringe IV 07/25/24 15:52 Q15MIN PRN BG 50-70 responsive npo pt Dextrose 50 ml 06/25/24 15:53 Dextrose 50%-Water Inj 50 Ml Syringe IV 07/25/24 15:52 Q15MIN PRN BG <50 OR BG <70 & pt unresponsive Glucagon 1 mg 06/25/24 15:53 Glucagon Inj 1 Mg Vial IM Q15MIN PRN BG <70, and no IV access Hydralazine HCl 10 mg 06/25/24 16:00 06/25/24 16:16 Hydralazine Inj 20 Mg/Ml Vial IV 07/25/24 15:59 10 mg Q4H PRN Administration Blood Pressure - High Hydralazine HCl 50 mg 06/26/24 18:00 Hydralazine Hcl 25 Mg Tablet PO 07/26/24 17:59 Q6HR KALEY Heparin Sodium/Dextrose 25,000 unit in 250 mls @ 10.016 mls/hr 06/25/24 14:30 06/26/24 10:20 Heparin In D5w Ivpb IV 07/09/24 14:29 Infused .Q24H [facility] Titration Protocol 7.1 UNITS/KG/HR Sodium Chloride 500 mls @ 100 mls/hr 06/26/24 10:00 06/26/24 10:44 Ns 0.45% IV 07/26/24 09:59 100 mls/hr .Q5H KALEY Administration Insulin Human Lispro 0 unit 06/26/24 09:50 Insulin Lispro (Admelog) 1 Unit/0.01 Ml Unit SC 07/25/24 17:59 Q6HR [facility] Protocol Labetalol HCl 200 mg 06/25/24 21:00 06/26/24 08:06 Labetalol 100 Mg Tablet PO 07/25/24 20:59 200 mg BID KALEY Administration Losartan Potassium 100 mg 06/26/24 09:00 06/26/24 08:05 Losartan Potassium 25 Mg Tablet PO 07/26/24 08:59 100 mg QDAY KALEY Administration Morphine Sulfate 2 mg 06/25/24 15:27 06/26/24 03:52 Morphine Sulf Inj 10 Mg/Ml Vial IVP 06/30/24 15:26 2 mg Q4H PRN Administration PAIN SCALE 7-10 (Severe Nitroglycerin 0.4 mg 06/26/24 03:54 06/26/24 04:15 Nitroglycerin 0.4 Mg Subl Btl #25 SL 0.4 mg Q5MIN PRN Administration CHEST PAIN Nitroglycerin 1 inch 06/26/24 20:00 Nitroglycerin Oint 2% 1 Inch Packet TOP 07/26/24 19:59 Q6HR [facility] Protocol Ondansetron HCl 4 mg 06/25/24 15:27 Ondansetron Inj 2 Mg/Ml Inj 2 Ml IV 07/25/24 15:26 Q6H PRN NAUSEA OR VOMITING Protocol Plan 64 y/o M with PMHx significant for hypertension, prediabetes, hyperlipidemia presents to ED with chief complaint of chest pain x 3 days with severe worsening x 1 day, admitted for NSTEMI. #NSTEMI #Hypertensive emergency Patient has history of hypertension, states home BP checks typically approximately 200/100. Patient presented with chest pain x 3 days with severe worsening x 1 day. EKG showed T wave changes, troponin 1.48 up trended to 3.19. Cardiology consulted, plan for cardiac cath tomorrow. Loading doses of aspirin and Plavix given. Patient experienced rapid response due to increasing chest pain 10/10 requiring multiple rounds of nitro and morphine for relief. EKG at that time showed changes in the ST segments and T waves. Troponin continuing to uptrend: 11.6. -Cardiac cath today -Telemetry -Cardiology consulted, appreciate recommendations -Resume patient's home meds: Losartan 100 mg daily, amlodipine 10 mg daily -Labetalol 200 mg p.o. twice daily -Hydralazine pushes as needed -Trend troponin -Heparin drip -Morphine as needed for chest pain #DM Patient reports history of prediabetes for which she takes Januvia. However patient previous A1c of 6.9%. A1c 6.4% this admission. Patient glucose on admission 293. -Insulin sliding scale DVT prophylaxis: Heparin drip GI prophylaxis: None Diet: N.p.o. Lines: Peripheral IV Code status: Full code Plan of care discussed with senior resident Dr. Olson PGY?[address] Boles. Willis Sandhu MD PGY?1 Attending Provider Attestation/Addendum I attest that I was physically present for the evaluation, physical examination, lab and imaging review of the patient with the residents. I discussed the case with the residents and agree with the findings and plans of care as documented above. Patient had a rapid response called last night for chest pain. He was given nitroglycerin, morphine and hydralazine. Chest pain removed after the medication. Undergoing cardiac catheterization today with cardiology. Continues to be on heparin drip, labetalol, losartan, amlodipine. Sourav Boles MD
--- NOTE | 2024-06-26 16:49 | PC.NURSE ---
report given to Ramona RN, RN and patient aware that the right wrist should be resting for 3-5 days without lifting anything heavy. patient is stable, still sleepy but very arousable when being talked to.
[2024-06-26] MEDS: INSULIN LISPRO (AdmeLOG) 1 UNIT/0.01 ML UNIT SC ×2 (17:15→21:23)
[2024-06-26] MEDS: POTASSIUM CHLORIDE 20 mEq TABCR 40 MEQ PO (17:16)
[2024-06-26] MEDS: POTASSIUM CHL 10 mEq IVPB 10 MEQ/100 ML BAG 70 MEQ IV ×2 (17:18→18:46)
--- NOTE | 2024-06-26 17:48 | ESOP_ITS ---
RE: AYESHA GARG : 1960 DATE OF OPERATION: 06/26/2024 PROCEDURE PERFORMED: 1. Emergency diagnostic left heart cardiac catheterization, selective coronary angiogram, left ventricular angiogram, CPT 50001. 2. PCI, PTCA stent placement of the large diagonal branch of the left anterior descending artery, D1 branch, placement of drug-eluting stent, 2.5 x 16 mm Synergy stent. Diagnosis of acute ST segment elevation myocardial infarction, CPT 93441. 4. PTCA, percutaneous transluminal coronary angioplasty of additional lesion of diagonal branch of the left anterior descending artery, inferior branch of diagonal branch with a balloon angioplasty, 2 mm balloon with excellent results, CPT 10753. 5. Ultrasound-guided access, right radial artery. 6. Conscious sedation 1-hour duration. DIAGNOSES: Acute myocardial infarction, troponin elevation, chest pain, severe hypertension. HISTORY AND INDICATIONS: The patient is a 64-year-old male with obesity, hypertension, morbid obesity, diabetes mellitus, hypercholesterolemia presented to the hospital, severe crushing chest pain, left side chest pain, cardiac enzyme continued to be elevated. EKG showed some ST changes in anteroseptal lead suggestive of acute myocardial infarction. Because of recurrent chest pain, coronary angiogram, cardiac catheterization is recommended for assessment of SALESPERSON NEW CARS. The patient's troponin did go up to 11.6. DESCRIPTION OF PROCEDURE: The patient was brought to cardiac catheterization lab, IV heparin was discontinued. Right radial approach was taken. Right radial artery was cannulated with micropuncture techniques. 6 Mexican Glidesheath introduced. Conscious sedation given with 2 mg Versed, 100 mcg of fentanyl. Selective right coronary angiogram was performed by a 5-Mexican ROSALINE RADIAL__ radial catheter. Left heart catheterization LV angiogram performed by a 5- Mexican TIG-4 diagnostic catheter. Left coronary angiogram was performed by using 5-Mexican JL5 diagnostic catheter, large aorta. Diagnostic procedure show following findings: Right coronary artery is large and dominant, it appeared normal. Left coronary system: Left main coronary artery is short. . Circumflex artery is normal. Left anterior descending artery showed no significant stenosis. There is a large 2.5 mm diagonal branch showed evidence of 100% occlusion of the proximal segment. This appeared to be the culprit lesion. SALESPERSON NEW CARS was undertaken. Left ventricular pressure is 140, EDP is 38 mmHg. Aortic pressure 140/80. No gradient across aortic valve. Left ventricle angiogram show evidence of mild anteroapical hypokinesis. Ejection fraction of 60%. SALESPERSON NEW CARS details are as follows: The patient was given radial cocktail of 3000 units of heparin. Additional 7000 units heparin was given. A total of 10,000 units. ACT was 330. The patient was already loaded with aspirin and Plavix. Proceeded with PCI using _. A 6-Mexican FL 4.5 guiding catheter was used to cannulate the left main coronary artery, 0.014 wire run through guidewire was used to across the lesion successfully and a 2.0 x 12 mm Emerge balloon catheter was used to dilate the lesion successfully. JIMY 1 flow was established. Stent placement performed by using 2.5 mm and 16 mm Synergy stent was placed in the large diagonal branch of the left anterior descending artery. Inferior branch showed 99% stenosis, limiting flow in only 2 mm vessel. I felt balloon angioplasty could be sufficient. The lesion was crossed. The inferior branch of the lesion was crossed using 0.014 run through guidewire, subsequently 2.0 x 12 mm Warrick Emerge balloon was used to dilate the lesion successfully. Three inflations were performed at 1 minute duration. After balloon angioplasty, there was no residual stenosis with excellent angiography I decided not to stent this lesion because the vessel is too small and chance of restenosis high. Final angiogram shows well-appearing left anterior descending artery, well- appearing diagonal branch and inferior branches with 0% stenosis. SUMMARY OF FINDINGS: 1. Acute ST segment myocardial infarction elevation with elevated troponin levels. Underwent successful primary angioplasty of the left anterior descending artery diagonal branch culprit lesion with stent placement. Preprocedure stenosis was 100%, post procedure 0%. Preprocedure JIMY flow was 0, post procedure JIMY flow 3. Additional vessel angioplasty of the inferior branch, which is 99% preprocedure stenosis, post procedure stenosis is 0%. JIMY flow preprocedure stenosis is 2. Postprocedure JIMY flow 3. Complications none. The patient is recommended to continue aspirin and Plavix. Blood pressure is quite high recommended to continue combination of medical management including labetalol, amlodipine, hydralazine, and losartan. DT: 16:01:37 TT: 17:24:00 Ref: 1897 - TID: [id number] MTDD
[2024-06-27] VITALS (18 sets, daily range): BP systolic 111–161; BP diastolic 57–80; PULSE 65–85; RESP 12–95; TEMP 36.4–37.3; O2SAT 93–97
[2024-06-27] MEDS: hydrALAZINE HCL 25 MG TABLET 50 MG PO ×3 (00:33→11:36)
[2024-06-27] MEDS: NITROGLYCERIN OINT 2% 1 INCH PACKET TOP ×2 (00:34→05:44)
[2024-06-27 05:20] LABS: Basophils # (Auto) 0.1 Thou/mm3 (0.0-0.2); Basophils % (Auto) 0 % (0-2.5); Eosinophils # (Auto) 0.1 Thou/mm3 (0.0-0.5); Eosinophils % (Auto) 1 % (0-10); Hematocrit 40.3 % (41.0-53.0); Hemoglobin 13.6 g/dL (13.5-16.0); Immature Granulocytes % (Auto) 1 % (0-0); Immature Granulocytes Auto 0.08 Thou/mm3 (0.00-0.00); Lymphocytes # (Auto) 2.4 Thou/mm3 (1.0-4.8); Lymphocytes % (Auto) 15 % (10-50); Mean Corpuscular HGB Conc 33.7 g/dl (31.0-37.0); Mean Corpuscular Hemoglobin 29.9 pg (25.0-35.0); Mean Corpuscular Volume 89 fL (80-100); Monocytes # (Auto) 1.6 Thou/mm3 (0.0-0.8); Monocytes % (Auto) 10 % (0-12); Neutrophils # (Auto) 11.5 Thou/mm3 (1.8-7.7); Neutrophils % (Auto) 73 % (37-80); Nucleated Red Blood Cell % 0 /100 WBC (0); Platelet Count 194 Thou/mm3 (140-440); Red Blood Count 4.55 Miln/mm3 (4.50-5.90); White Blood Count 15.8 Thou/mm3 (3.8-10.6)
[2024-06-27 05:44] LABS: Partial Thromboplastin Time 27.3 Seconds (22.0-36.0); Prothrombin Time 11.4 Seconds (9.0-12.2)
[2024-06-27 06:18] LABS: Alanine Aminotransferase 49 U/L (10-49); Albumin, Serum 4.2 gm/dL (3.4-4.8); Albumin/Globulin Ratio 1.7 (1.2-2.2); Alkaline Phosphatase 57 U/L (46-116); Anion Gap 10 (7-16); Aspartate Amino Transferase 99 U/L (0-34); BUN/Creatinine Ratio 15 Ratio (12-20); Bilirubin,Total 1.4 mg/dL (0.3-1.2); Blood Urea Nitrogen 18 mg/dL (9-23); Calcium 8.9 mg/dL (8.3-10.6); Calcium (Corrected) 8.9 mg/dL (8.5-10.1); Carbon Dioxide 26.8 mMol/L (20.0-31.0); Chloride 102 mMol/L (98-107); Creatinine (Component) 1.2 mg/dL (0.6-1.3); Estimated Creatinine Clearance 91.9 mL/min (>60); Globulin 2.5 gm/dL (2.3-3.5); Glucose 144 mg/dL (74-106); Magnesium 2.1 mg/dL (1.6-2.6); Osmolality,Calculated 282 (275-295); Phosphorous 3.3 mg/dL (2.4-5.1); Potassium 3.6 mMol/L (3.4-5.1); Sodium 139 mMol/L (136-145); Total Protein 6.7 gm/dL (5.7-8.2); eGFR > 60 See Note
[2024-06-27] MEDS: INSULIN LISPRO (AdmeLOG) 1 UNIT/0.01 ML UNIT SC ×2 (07:34→11:35)
[2024-06-27] MEDS: CLOPIDOGREL BISULFATE 75 MG TABLET PO (08:09)
[2024-06-27] MEDS: POTASSIUM CHLORIDE 20 mEq TABCR 40 MEQ PO (08:09)
[2024-06-27] MEDS: amLODIPine BESYLATE 5 MG TABLET 10 MG PO (08:10)
[2024-06-27] MEDS: LABETALOL 100 MG TABLET 200 MG PO (08:10)
[2024-06-27] MEDS: ASPIRIN EC 81 MG TABEC PO (08:10)
[2024-06-27] MEDS: LOSARTAN POTASSIUM 25 MG TABLET 100 MG PO (08:11)
--- NOTE | 2024-06-27 10:22 | PC.SS ---
Maintenance Carpenter (KARYN) Meka met with patient [id number] to discuss discharge plan. Patient appeared alert and oriented to self, place and situation. Patient reported that plan was to discharge home, and his adult children would provide transportation.
--- NOTE | 2024-06-27 14:20 | ESDS_ITS ---
Planned Discharge Date 06/27/24 DS: Providers Provider Date of admission: 06/25/24 15:27 Primary care physician: Renay Sosa NP Admitting Provider: Sourav Boles MD Attending Provider on Admission: Sourav Boles MD Consults: 06/25/24 14:29 Consult to Cardiology Stat Comment: Non-STEMI Consulting Provider: Etienne Lopez Attending Provider on DC: Sourav Boles MD Discharging Provider: Willis Sandhu MD DS: Diagnosis Problem List Completed Was Problem List Reviewed/Reconciled?: Yes Hospital Course Hospital Course Hospital course: 64 y/o M with PMHx significant for hypertension, prediabetes, hyperlipidemia presents to ED with chief complaint of chest pain x 3 days with severe worsening x 1 day. Chest pain acutely worsened to 10 out of 10, same location, radiating to back, associated with shortness of breath. Patient reported he typically sleeps with 3 pillows at night due to shortness of breath when lying flat, has new leg swelling for some period of time. Patient also noted that he regularly checks home blood pressure, typically is approximately 200/100. Denied fever, chills, nausea, vomiting, dysuria. Patient received morphine, nitro, labetalol 20, hydralazine 20, aspirin 325 in the ED. EKG showed T wave changes compared to previous, possible ST changes. Patient severely hypertensive, SBP greater than 200, decreased to 180/91 with intervention. Patient was admitted for NSTEMI and hypertensive emergency. Patient was started on aggressive blood pressure regiment with amlodipine, labetalol, losartan, hydralazine. Patient received cardiac cath which showed 100% occlusion of LAD, repaired with placement. Patient started on aspirin and Plavix. Following day patient was examined at bedside, reported significant subjective symptoms. Cardiology cleared patient for discharge home. Patient medically stable and cleared for discharge. Discharge plan: Patient will DC home. Medications upon discharge: -amlodipine 10mg once a day -losartan 100mg once a day -labetalol 200mg twice a day -aspirin 81mg once a day -plavix 75mg once a day Follow up with Dr Burnham at the [facility] ([address] [place] [address] [address] [address]) on Wednesday July 03, 2024 in the afternoon, walk- in. Diagnoses: #STEMI, s/p cardic cath with stent #Hypertensive emergency, resolved #DM Time Spent with Patient Time attestation: Total time spent providing and/or coordinating discharge services: Exam Vital Signs Temp Pulse Resp BP Pulse Ox O2 Del Method O2 Flow Rate 98.7 F 71 21 H 111/57 L 96 Room Air 3 06/27/24 12:00 06/27/24 12:00 06/27/24 12:00 06/27/24 12:06/27/24 12:06/27/24 12:00 06/26/24 12:19 FiO2 30 06/27/24 02:25 Narrative Exam PE: Gen: Well-developed and well-nourished. Obese. HEENT: NCAT, PERRLA, EOMI, MMM, anicteric conjunctivae. CVS: normal S1 and S2. RRR. No M/R/G. Resp: CTA B/L. No rhonchi, rales, crackles or wheezing. Poor lung sounds due to body habitus. Abd: soft, non-distended. BS+ in all 4 quadrants. Mild abdominal tenderness in epigastric and right upper and lower quadrants. Bruising right lower quadrant. MSK: Good ROM in BUE & BLE. No rash. 1+ pitting edema bilateral lower extremities. Neuro: CN II-XII grossly intact. Strength 5/5 in BUE & BLE. Alert and oriented x3. Psych: appropriate mood and affect. Discharge Plan Plan Patient Disposition: HOME (Self Care) Patient condition on transfer: Stable Care Plan Goals: Patient will DC home. Medications upon discharge: -amlodipine 10mg once a day -losartan 100mg once a day -labetalol 200mg twice a day -aspirin 81mg once a day -plavix 75mg once a day Follow up with Dr Burnham at the [facility] ([address] [place] [address] [address] [address]) on Wednesday July 03, 2024 in the afternoon, walk- in. Prescriptions/Referrals Prescriptions/Med Rec: New rosuvastatin 40 mg capsule, sprinkle 40 mg PO QDAY Qty: 90 3RF labetalol 200 mg tablet 200 mg PO BID Qty: 90 3RF losartan 100 mg tablet 100 mg PO QDAY Qty: 90 3RF amlodipine 10 mg tablet 10 mg PO QDAY Qty: 90 3RF aspirin [Adult Aspirin Regimen] 81 mg tablet,delayed release (DR/EC) 81 mg PO QDAY Qty: 90 3RF clopidogrel [Plavix] 75 mg tablet 75 mg PO QDAY Qty: 90 3RF Continued losartan 100 mg tablet 100 mg PO QDAY Qty: 90 0RF Rx Instructions: Directions in [place]ian aspirin 81 mg tablet,chewable 81 mg PO QDAY Qty: 90 0RF Rx Instructions: Directions in [place]ian amlodipine 10 mg tablet 10 mg PO QDAY Qty: 90 0RF Rx Instructions: Directions in [place]ian Januvia 25 mg tablet 25 mg PO QDAY Patient Comments: TAKE 1 TABLET BY MOUTH EVERY DAY Discontinued rosuvastatin 20 mg tablet 20 mg PO HS 90 Days Qty: 90 0RF Rx Instructions: Directions in [place]ian Referrals: Sheila C FUNCTIONAL MANAGER,Renay Sow, FUNCTIONAL MANAGER [Primary Care Provider] - Patient/Caregiver Discharge Instructions Discharge Activity: activity as tolerated Education Materials: Heart Attack Dc, Heart Attack Meds, Heart Attack Questions Print Language: [place]ian Stand Alone Forms: Ly Award Info., Patient Portal Info Letter Discharge Order Discharge Orders: Discharge (Routine); Ordered 06/27/24 Ordered By: Calderon Burnham Quality Discharge Quality Measures VTE prophylaxis Attestestation Attestation I attest that I was physically present for the evaluation, physical examination, lab and imaging review of the patient with the residents. I discussed the case with the residents and agree with the findings and plans of care as documented above. At bedside today, patient is states he is feeling well and does not have any new complaints. Chest pain has resolved. Has been tolerating diet well. Underwent cardiac catheterization yesterday, found to have 100% occlusion of diagonal branch of LAD and had a stent placed. Also had a 99% occlusion on inferior branch, balloon angioplasty was done. Blood pressure has been controlled with multiple antihypertensives. Discussed with cardiology,. Agreed on patient being stable for discharge. Patient will be discharged home on oral medication, recommended to follow-up with PCP and cardiology in 1 to 2 weeks of discharge. Sourav Boles MD
--- NOTE | 2024-06-27 17:04 | PC.NURSE ---
shira to r.wrist removed,instructed pt. to removed tegaderm dressing tomorrow @ 1540.no bleeding or bruising noted.
== END 2024-06-27 17:10 | disposition home or self-care (01) | DRG 174 ==
LOC: SERX 14:33 → SERHOLD 15:53 → S2NX 19:49
PROVIDERS: Nurse Practitioner Family; Nurse Practitioner Primary Care; Student in an Organized Health Care Education/Training Program; Admitting Provider Student in an Organized Health Care Education/Training Program; Emergency Provider Emergency Medicine; PCP Nurse Practitioner Family; Visit Provider Student in an Organized Health Care Education/Training Program
DX: I21.3 ST elevation (STEMI) myocardial infarction of unspecified site (principal); I10 Essential (primary) hypertension; E78.00 Pure hypercholesterolemia, unspecified; I16.1 Hypertensive emergency; M10.9 Gout, unspecified; G62.9 Polyneuropathy, unspecified; E66.01 Morbid (severe) obesity due to excess calories; Z68.41 Body mass index [BMI] 40.0-44.9, adult; E11.9 Type 2 diabetes mellitus without complications
CPT/HCPCS: 36415; 71045; 71275; 74174; 80053; 80061; 83036; 83690; 83735; 83880; 84100; 84443; 84484; 85025; 85347; 85610; 85730; 93005; 93306; 94660; 94762; 99152; 99153; A4649; C1725; C1769; C1874; C1887; C1894; J0171; J0360; J0461; J1643; J1644; J1815; J1940; J2250; J2270; J2310; J2371; J2405; J3010; J3475; J3480; J3490; J7040; Q9967; A9270; J1920; J2305

== ENCOUNTER → 2024-07-17 | Outpatient (CLI) | payer MEDICAID, SELFPAY ==
--- NOTE | 2024-07-17 10:30 | XR_ITS ---
Examination: Abdomen sonogram, complete Date and time of exam: July 17, 2024 1021 hours INDICATIONS: Abnormal function tests on laboratory examination November 25, 2024. Technique: Multiple real-time grayscale transabdominal sonographic images of the abdomen have been obtained. Findings: Negative for gallstones Gallbladder wall 0.49 cm no edema Common bile duct 0.3 cm Pancreatic head 2.2 cm Aorta not enlarged Liver 16.16 fatty infiltration smooth contour no focal liver lesions Normal hepatopedal portal venous oh Patent IVC Right kidney 13.7 x 6.4 x 5.6 cm renal cortex 2.5 cm Left kidney 11.7 x 7.4 x 7.3 cm cortex 1.6 cm Bilateral renal cysts, the largest in the lower pole right kidney 18 mm and lower pole left kidney 10 mm 7 mm calculus lower pole left kidney Dilated calyces upper pole right kidney Spleen 11.4 cm IMPRESSION: Borderline gallbladder wall thickening, consider HIDA scan or MRCP follow-up to exclude cholecystitis Fatty liver 10 mm left renal calculus Moderate bilateral renal parenchymal scar formation
== END | disposition home or self-care (01) ==
LOC: CDIM 09:52
PROVIDERS: PCP Nurse Practitioner Family; Referring Provider Nurse Practitioner Family; Visit Provider Nurse Practitioner Family
DX: K82.8 Other specified diseases of gallbladder (principal); K76.0 Fatty (change of) liver, not elsewhere classified; N28.89 Other specified disorders of kidney and ureter
CPT/HCPCS: 76700

== ENCOUNTER → 2024-08-03 | Outpatient (BNVA) | payer MEDICAID, SELFPAY | END | disposition home or self-care (01) | PROVIDERS: PCP Nurse Practitioner Family; Referring Provider Nurse Practitioner Family; Visit Provider Nurse Practitioner Family | DX: Z76.89 Persons encountering health services in other specified circumstances (principal); Z95.1 Presence of aortocoronary bypass graft; E11.9 Type 2 diabetes mellitus without complications; E66.9 Obesity, unspecified; E78.5 Hyperlipidemia, unspecified; Z91.199 Patient's noncompliance with other medical treatment and regimen due to unspecified reason; I10 Essential (primary) hypertension | CPT/HCPCS: 99214 ==

== ENCOUNTER → 2024-08-17 | Outpatient (BNVA) | payer MEDICAID, SELFPAY | END | disposition home or self-care (01) | PROVIDERS: PCP Nurse Practitioner Family; Referring Provider Nurse Practitioner Family; Visit Provider Nurse Practitioner Family | DX: Z71.2 Person consulting for explanation of examination or test findings (principal); R94.5 Abnormal results of liver function studies; E78.5 Hyperlipidemia, unspecified; E11.9 Type 2 diabetes mellitus without complications; E66.9 Obesity, unspecified; K80.50 Calculus of bile duct without cholangitis or cholecystitis without obstruction; K76.0 Fatty (change of) liver, not elsewhere classified; I10 Essential (primary) hypertension; N28.1 Cyst of kidney, acquired; Z12.11 Encounter for screening for malignant neoplasm of colon; Z68.41 Body mass index [BMI] 40.0-44.9, adult | CPT/HCPCS: 99214 ==

== ENCOUNTER → 2024-08-20 | Outpatient (BNVA) | payer MEDICAID, SELFPAY | END | disposition home or self-care (01) | PROVIDERS: PCP Nurse Practitioner Family; Referring Provider Nurse Practitioner Family; Visit Provider Nurse Practitioner Family | DX: H66.91 Otitis media, unspecified, right ear (principal); I10 Essential (primary) hypertension | CPT/HCPCS: 99213 ==

== ENCOUNTER → 2024-09-07 | Outpatient (BNVA) | payer MEDICAID, SELFPAY | END | disposition home or self-care (01) | PROVIDERS: PCP Nurse Practitioner Family; Referring Provider Nurse Practitioner Family; Visit Provider Nurse Practitioner Family | DX: R94.120 Abnormal auditory function study (principal); Z76.89 Persons encountering health services in other specified circumstances | CPT/HCPCS: 99214 ==

== ENCOUNTER → 2024-09-10 | Outpatient (BNVA) | payer MEDICAID, SELFPAY | END | disposition home or self-care (01) | PROVIDERS: PCP Nurse Practitioner Family; Referring Provider Nurse Practitioner Family; Visit Provider Nurse Practitioner Family | DX: Z71.2 Person consulting for explanation of examination or test findings (principal); Z12.11 Encounter for screening for malignant neoplasm of colon | CPT/HCPCS: 99212; 99213; G0463 ==

== ENCOUNTER → 2024-09-21 | Outpatient (BNVA) | payer MEDICAID, SELFPAY | END | disposition home or self-care (01) | PROVIDERS: PCP Nurse Practitioner Family; Referring Provider Nurse Practitioner Family; Visit Provider Nurse Practitioner Family | DX: Z71.2 Person consulting for explanation of examination or test findings (principal); E78.5 Hyperlipidemia, unspecified | CPT/HCPCS: 99214 ==

== ENCOUNTER → 2024-09-25 | Outpatient (BNVA) | payer MEDICAID, SELFPAY | END | disposition home or self-care (01) | PROVIDERS: PCP Internal Medicine; Referring Provider Internal Medicine; Visit Provider Internal Medicine | DX: E11.69 Type 2 diabetes mellitus with other specified complication (principal); E13.9 Other specified diabetes mellitus without complications; E13.22 Other specified diabetes mellitus with diabetic chronic kidney disease; I13.10 Hypertensive heart and chronic kidney disease without heart failure, with stage 1 through stage 4 chronic kidney disease, or unspecified chronic kidney disease; N18.2 Chronic kidney disease, stage 2 (mild); R80.9 Proteinuria, unspecified; E78.5 Hyperlipidemia, unspecified; N20.0 Calculus of kidney | CPT/HCPCS: 99204 ==

== ENCOUNTER → 2024-10-05 | Outpatient (BNVA) | payer MEDICAID, SELFPAY | END | disposition home or self-care (01) | PROVIDERS: PCP Nurse Practitioner Family; Referring Provider Nurse Practitioner Family; Visit Provider Nurse Practitioner Family | DX: I10 Essential (primary) hypertension (principal); Z23 Encounter for immunization | CPT/HCPCS: 90471; 90472; 90677; 90715; 99213; J90677 ==

== ENCOUNTER → 2024-10-19 | Outpatient (BNVA) | payer MEDICAID, SELFPAY | END | disposition home or self-care (01) | PROVIDERS: PCP Nurse Practitioner Family; Referring Provider Nurse Practitioner Family; Visit Provider Nurse Practitioner Family | DX: H10.33 Unspecified acute conjunctivitis, bilateral (principal); Z91.199 Patient's noncompliance with other medical treatment and regimen due to unspecified reason; I13.10 Hypertensive heart and chronic kidney disease without heart failure, with stage 1 through stage 4 chronic kidney disease, or unspecified chronic kidney disease; N18.2 Chronic kidney disease, stage 2 (mild); E11.22 Type 2 diabetes mellitus with diabetic chronic kidney disease | CPT/HCPCS: 99214 ==

== ENCOUNTER → 2024-12-04 | Outpatient (CLI) | payer MEDICAID, SELFPAY ==
--- NOTE | 2024-12-04 17:15 | XR_ITS ---
MRI abdomen, without contrast. MRCP Date and time of exam: December 04, 2024 1747 hours INDICATIONS: Abdominal pain beginning 2 years ago, ultrasound abdomen 2024 borderline thickening gallbladder wall Technique: Multiple axial and coronal images of the abdomen have been obtained with the Siemens 1.5T MRI scanner. Images obtained included T1 weighted transverse images, T2-weighted transverse images, T2-weighted transverse images fat-suppressed, T2 weighted haste fat suppressed transverse images, T1 weighted images, in and out of phase images, T2-weighted coronal images, breath hold, T2 weighted haze coronal images as well as T2 weighted coronal thick slab images, MRCP. Findings: No focal liver lesions or intrahepatic biliary tract dilatation Normal gallbladder Normal common hepatic common bile duct Negative for pancreatitis Pancreatic duct is not dilated Spleen is not enlarged No hydronephrosis No ascites Aorta normal size IMPRESSION: Normal gallbladder Normal common hepatic common bile duct Negative for pancreatitis
== END | disposition home or self-care (01) ==
PROVIDERS: PCP Nurse Practitioner Family; Referring Provider Nurse Practitioner Family; Visit Provider Nurse Practitioner Family
DX: K82.8 Other specified diseases of gallbladder (principal)
CPT/HCPCS: S8037; 74181

== ENCOUNTER → 2024-12-25 | Outpatient (BNVA) | payer MEDICAID, SELFPAY | END | disposition home or self-care (01) | PROVIDERS: PCP Nurse Practitioner Family; Referring Provider Nurse Practitioner Family; Visit Provider Nurse Practitioner Family | DX: M15.9 Polyosteoarthritis, unspecified (principal); M25.562 Pain in left knee; M25.561 Pain in right knee | CPT/HCPCS: 99213 ==

== ENCOUNTER → 2025-01-04 | Outpatient (BNVA) | payer MEDICAID, SELFPAY | END | disposition home or self-care (01) | PROVIDERS: PCP Nurse Practitioner Family; Referring Provider Nurse Practitioner Family; Visit Provider Nurse Practitioner Family | DX: B35.2 Tinea manuum (principal); I10 Essential (primary) hypertension | CPT/HCPCS: 99215 ==

== ENCOUNTER → 2025-01-11 | Outpatient (CLI) | payer MEDICAID, SELFPAY ==
--- NOTE | 2025-01-11 15:27 | XR_ITS ---
Examination: Knee bilateral, 6 views Technique: Knee AP, lateral, oblique, each knee total 6 views Date and time of exam: January 11, 2025 1535 hours INDICATIONS: Bilateral knee pain beginning 6 years ago FINDINGS: Bilateral moderate tricompartment osteoarthritis, most severe medial joint spaces No fractures or dislocations No foreign bodies IMPRESSION: Bilateral moderate tricompartment osteoarthritis
== END | disposition home or self-care (01) ==
PROVIDERS: PCP Nurse Practitioner Family; Referring Provider Nurse Practitioner Family; Visit Provider Nurse Practitioner Family
DX: M17.0 Bilateral primary osteoarthritis of knee (principal)
CPT/HCPCS: 73562

== ENCOUNTER → 2025-01-11 | Outpatient (BNVA) | payer MEDICAID, SELFPAY | END | disposition home or self-care (01) | PROVIDERS: PCP Nurse Practitioner Family; Referring Provider Nurse Practitioner Family; Visit Provider Nurse Practitioner Family | DX: B35.2 Tinea manuum (principal); I10 Essential (primary) hypertension | CPT/HCPCS: 99215 ==

== ENCOUNTER → 2025-01-18 | Outpatient (BNVA) | payer MEDICAID, SELFPAY | END | disposition home or self-care (01) | PROVIDERS: PCP Nurse Practitioner Family; Referring Provider Nurse Practitioner Family; Visit Provider Nurse Practitioner Family | DX: Z71.2 Person consulting for explanation of examination or test findings (principal); R19.7 Diarrhea, unspecified; E55.9 Vitamin D deficiency, unspecified | CPT/HCPCS: 99212; 99214; G0463 ==

== ENCOUNTER → 2025-01-20 | Outpatient (BNVA) | payer MEDICAID, SELFPAY | END | disposition home or self-care (01) | PROVIDERS: PCP Nurse Practitioner Family; Referring Provider Nurse Practitioner Family; Visit Provider Nurse Practitioner Family | DX: Z09 Encounter for follow-up examination after completed treatment for conditions other than malignant neoplasm (principal); R19.7 Diarrhea, unspecified | CPT/HCPCS: 99212; G0463 ==

== ENCOUNTER → 2025-01-25 | Outpatient (BNVA) | payer MEDICAID, SELFPAY | END | disposition home or self-care (01) | PROVIDERS: PCP Nurse Practitioner Family; Referring Provider Nurse Practitioner Family; Visit Provider Nurse Practitioner Family | DX: Z71.2 Person consulting for explanation of examination or test findings (principal); I10 Essential (primary) hypertension; E78.5 Hyperlipidemia, unspecified; E11.9 Type 2 diabetes mellitus without complications; R80.9 Proteinuria, unspecified; N52.9 Male erectile dysfunction, unspecified; E66.9 Obesity, unspecified | CPT/HCPCS: 99212; G0463 ==

== ENCOUNTER → 2025-01-28 | Outpatient (BNVA) | payer MEDICAID, SELFPAY | END | disposition home or self-care (01) | PROVIDERS: PCP Nurse Practitioner Family; Referring Provider Nurse Practitioner Family; Visit Provider Nurse Practitioner Family | DX: Z71.2 Person consulting for explanation of examination or test findings (principal); B35.2 Tinea manuum | CPT/HCPCS: 99212; G0463 ==

== ENCOUNTER → 2025-02-01 | Outpatient (BNVA) | payer MEDICAID, SELFPAY | END | disposition home or self-care (01) | PROVIDERS: PCP Nurse Practitioner Family; Referring Provider Nurse Practitioner Family; Visit Provider Nurse Practitioner Family | DX: B35.2 Tinea manuum (principal); N52.9 Male erectile dysfunction, unspecified | CPT/HCPCS: 99215 ==

== ENCOUNTER → 2025-03-22 | Outpatient (BNVA) | payer MEDICAID, SELFPAY | END | disposition home or self-care (01) | PROVIDERS: PCP Nurse Practitioner Family; Referring Provider Nurse Practitioner Family; Visit Provider Nurse Practitioner Family | DX: B35.2 Tinea manuum (principal); Z91.148 Patient's other noncompliance with medication regimen for other reason; E11.22 Type 2 diabetes mellitus with diabetic chronic kidney disease; I12.9 Hypertensive chronic kidney disease with stage 1 through stage 4 chronic kidney disease, or unspecified chronic kidney disease; N18.2 Chronic kidney disease, stage 2 (mild); G47.30 Sleep apnea, unspecified; Z23 Encounter for immunization | CPT/HCPCS: 90471; 90686; 99215 ==

== ENCOUNTER → 2025-04-26 | Outpatient (BNVA) | payer MEDICAID, SELFPAY | END | disposition home or self-care (01) | PROVIDERS: PCP Nurse Practitioner Family; Referring Provider Nurse Practitioner Family; Visit Provider Nurse Practitioner Family | DX: E78.5 Hyperlipidemia, unspecified (principal); E11.65 Type 2 diabetes mellitus with hyperglycemia; R74.8 Abnormal levels of other serum enzymes ==

== ENCOUNTER → 2025-05-03 | Outpatient (BNVA) | payer MEDICAID, SELFPAY | END | disposition home or self-care (01) | PROVIDERS: PCP Nurse Practitioner Family; Referring Provider Nurse Practitioner Family; Visit Provider Nurse Practitioner Family | DX: Z71.2 Person consulting for explanation of examination or test findings (principal); E78.5 Hyperlipidemia, unspecified; Z91.199 Patient's noncompliance with other medical treatment and regimen due to unspecified reason; E11.9 Type 2 diabetes mellitus without complications; E66.9 Obesity, unspecified | CPT/HCPCS: 99212; G0463 ==